=== PATIENT | female | born 1955 | race Caucasian/White ===

== ENCOUNTER 2016-04-02 10:25 | Day surgery (SDC) | payer MEDICAID ==
[~2016-04-02] VITALS: Ht 156.2 cm; Wt 74.1 kg
[~2016-04-02 10:25] MED LIST: PROPOFOL 1% 20 ML VIAL IVP ONE; SODIUM CHLORIDE 0.9% 1,000 ML IV ONE
[2016-04-02] MEDS ORDERED: SODIUM CHLORIDE 0.9% 1,000 ML IV ONE (10:30)
[2016-04-02] MEDS ORDERED: POLY238P2 PO (10:42)
[2016-04-02] MEDS ORDERED: SENN-136 PO (10:42)
[2016-04-02] MEDS ORDERED: OXYC80 PO (10:42)
[2016-04-02 11:36] LABS: GLUCOSE,POINT OF CARE 90 MG/DL (70-110)
== END 2016-04-02 13:55 | disposition home or self-care (01) ==
LOC: SURGERY 10:25
PROVIDERS: ATTEND Internal Medicine Gastroenterology
DX: K63.89 Other specified diseases of intestine (principal); M19.90 Unspecified osteoarthritis, unspecified site; G43.909 Migraine, unspecified, not intractable, without status migrainosus; I73.00 Raynaud's syndrome without gangrene; M79.7 Fibromyalgia; A69.20 Lyme disease, unspecified; M62.81 Muscle weakness (generalized); J45.909 Unspecified asthma, uncomplicated; E66.9 Obesity, unspecified; F32.9 Major depressive disorder, single episode, unspecified; F41.9 Anxiety disorder, unspecified; G89.29 Other chronic pain; F17.200 Nicotine dependence, unspecified, uncomplicated; Z88.2 Allergy status to sulfonamides; Z90.49 Acquired absence of other specified parts of digestive tract; Z98.890 Other specified postprocedural states; Z86.718 Personal history of other venous thrombosis and embolism
CPT/HCPCS: 45378; 82962; J2704; J7030